=== PATIENT | female | born 1975 | race Caucasian/White ===

== ENCOUNTER → 2016-11-17 | Outpatient (CLI) | payer BC ==
[~2016-11-17] MED LIST: ALBUAER2 INH; CLC100 PO; CLRD24 PO; FLNIN NAE; IBUP-1428 PO; OXYC-57 PO; SYN150 PO
--- NOTE | 2016-11-17 15:04 | DIAGNOSTIC IMAGING REPORT ---
CERVICAL SPINE 4 OR 5 VIEWS CLINICAL HISTORY: NECK PAIN left arm radiculopathy. COMPARISON STUDY: No previous studies for comparison. FINDINGS: The prevertebral soft tissues are normal. No fractures or subluxations are visualized. The bony neural foramen appear patent. There are no erosive or destructive changes. IMPRESSION: No significant conventional radiographic abnormalities. Electronically signed by: Pelon Cabrera M.D. 11/17/2016 3:02 PM Dictated Date/Time: 11/17/2016 3:02 PM
== END | disposition home or self-care (01) ==
LOC: C.RDSM 14:55
PROVIDERS: ATTEND Internal Medicine
DX: M54.2 Cervicalgia (principal)

== ENCOUNTER 2020-10-13 19:34 | Observation (INO) ==
[2020-10-13] MEDS ORDERED: ONDANSETRON INJ 2 MG/ML 2 ML VIAL IV STA ×2 (19:54→22:11)
[2020-10-13] MEDS ORDERED: SODIUM CHLORIDE 0.9% 1000ML 1,000 ML IV STA (19:54)
--- NOTE | 2020-10-13 20:15 | Emergency Department Note ---
History of Present Illness General Chief complaint: Abdominal Pain Stated complaint: ABD PAIN Time Seen by Provider: 10/13/20 19:39 Source: patient and family (Spouse who is at the bedside and driving) Mode of arrival: ambulatory Limitations: no limitations History of Present Illness Maximum Pain Intensity: 8 This patient comes in complaining of abdominal pain. She said she was fine today until around 4:00 she developed nausea she threw up at 6:00 and said that it did look blackish like coffee grounds. She has stomachache afterwards. She had 2 episodes of diarrhea since that had no blood or melena. She feels bloated in the central abdominal discomfort that comes and goes slightly to the left. She has had 2 doses a Covid vaccine several weeks ago. No sick contacts. no unusual food. no fever or chills. no cough or shortness of breath. No travel. No history of similar. She does not use aspirin or NSAIDs and has no history of stomach problems. She has had a hysterectomy and a but no other abdominal surgeries Home Medications Medication Instructions Recorded Confirmed Type albuterol sulfate 2 puff INHALATION Q4 PRN 10/13/20 10/13/20 History fluticasone propionate 2 spray INTRANASAL DAILY PRN 10/13/20 10/13/20 History fluticasone propionate [Flovent 2 puff INHALATION BID PRN 10/13/20 10/13/20 History HFA] ibuprofen 400 mg PO Q6H PRN 10/13/20 10/13/20 History levothyroxine 100 mcg PO DAILY 10/13/20 10/13/20 History Allergies Allergy/AdvReac Type Severity Reaction Status Date / Time No Known Allergies Allergy Unknown Verified 10/13/20 20:07 Past Med/Surg History Social History Smoking Status: Never smoker Preferred Language: Indonesian Feels Safe at Home: Yes Immunizations: Past medical historyasthma which has been stable. hysterectomy. Denies diabetes or cardiac disease. She takes thyroid replacement for hypothyroidism and that is her only medication Allergiesno known drug allergies Social history she does not smoke. Drinks very rarely. Denies drug use Review of Systems A total of 10 systems reviewed and were otherwise negative Physical Exam Vital Signs Vital Signs - 24 hr 10/13/20 19:36 10/13/20 20:37 10/13/20 21:30 Temperature 36.7 C Temperature Source Temporal Artery Scan Pulse Rate 99 H Pulse Rate [Finger] 91 H 97 H Pulse Rhythm [Finger] Pulse Strength [Finger] Respiratory Rate 20 18 18 Respiratory Effort / Characteristics Non-Labored Spontaneous Non-Labored Spontaneous Respiratory Depth Normal Normal Respiratory Pattern Regular Regular Blood Pressure 157/86 H Blood Pressure [Right Arm] 122/75 130/83 Blood Pressure Mean 109 Blood Pressure Mean [Right Arm] 90 98 Blood Pressure Position [Right Arm] Pulse Oximetry 99 98 98 Oxygen Delivery Method Room Air Room Air Sepsis New/Unexplained Change in Mental Status N/A Sepsis Action Taken by Nursing No Action Required 10/13/20 22:21 Temperature Temperature Source Pulse Rate Pulse Rate [Finger] 93 H Pulse Rhythm [Finger] Regular Pulse Strength [Finger] Normal Respiratory Rate 18 Respiratory Effort / Characteristics Non-Labored Spontaneous Respiratory Depth Normal Respiratory Pattern Regular Blood Pressure Blood Pressure [Right Arm] 111/79 Blood Pressure Mean Blood Pressure Mean [Right Arm] 89 Blood Pressure Position [Right Arm] Lying Pulse Oximetry 97 Oxygen Delivery Method Room Air Sepsis New/Unexplained Change in Mental Status Sepsis Action Taken by Nursing General: Well developed well nourished middle-age female who appears in no acute distress, breathing comfortably on room air. Normal speech HEENT: Normal cephalic atraumatic. Pupils are equal round and reactive to light. Extraocular movements are intact. Oropharynx is pink with moist mucous membranes. No swelling of the mouth lips or tongue. Neck: Supple with a midline trachea. No meningeal signs or stiffness, no JVD or bruits. No Stridor. Chest: Clear to auscultation bilaterally. No wheezes or rhonchi. No increased work of breathing. Heart: Regular rate and rhythm without murmurs or gallops. Abdomen: Soft minimally tender in the epigastric area and centrally nondistended without rebound guarding or rigidity. Extremities: No cyanosis clubbing or edema. No calf tenderness or assymetry Spine/Back. Non tender to palpation. No CVA tenderness Skin: Good turgor without rashes. Neurologic exam: Cranial nerves two through 12 are intact. Motor and sensation are intact and symmetrical throughout. Course Administered Medications Discontinued Medications Sodium Chloride (Nss 1000ml) 1,000 mls @ 999 mls/hr IV .Q1H1M STA Stop: 10/13/20 20:54 Last Infusion: 10/13/20 21:10 Dose: 0 mls/hr Documented by: [id number] Admin: 10/13/20 20:09 Dose: 999 mls/hr Documented by: [id number] Sodium Chloride (Nss 1000ml) 1,000 mls @ 999 mls/hr IV .Q1H1M ONE Stop: 10/13/20 22:14 Last Infusion: 10/13/20 22:31 Dose: 0 mls/hr Documented by: [id number] Admin: 10/13/20 21:30 Dose: 999 mls/hr Documented by: [id number] Promethazine HCl (Phenergan) 12.5 mg in 50.5 mls @ 202 mls/hr IV NOW STA Stop: 10/13/20 22:58 Last Infusion: 10/13/20 23:04 Dose: 0 mls/hr Documented by: [id number] Admin: 10/13/20 22:49 Dose: 202 mls/hr Documented by: [id number] Pantoprazole Sodium 40 mg/ (Syringe) 10 mls @ 5 mls/min IV NOW STA Stop: 10/13/20 23:00 Last Admin: 10/13/20 23:31 Dose: 5 mls/min Documented by: [id number] Ioversol (Ioversol 100ml) 94 ml IV ONCE ONE Stop: 10/13/20 21:25 Last Admin: 10/13/20 21:24 Dose: 94 ml Documented by: [id number] Ondansetron HCl (Ondansetron Inj 2 Mg/Ml 2 Ml Vial) 4 mg IV NOW STA Stop: 10/13/20 19:55 Last Admin: 10/13/20 20:09 Dose: 4 mg Documented by: [id number] Ondansetron HCl (Ondansetron Inj 2 Mg/Ml 2 Ml Vial) 4 mg IV NOW STA Stop: 10/13/20 22:12 Last Admin: 10/13/20 22:15 Dose: 4 mg Documented by: [id number] Medical Decision Making Differential Diagnosis Gastritis, dehydration, infection, GI bleed, electrolyte or metabolic abnormality, pancreatitis, gallbladder or liver disease, Covid Medical Records Attestation: I reviewed the patient's medical records. Home Medications Current Medication List: was personally reviewed by me Laboratory Data Attestation: I reviewed the patient's lab results. Result diagrams: 10/13/20 20:11 10/13/20 20:11 Lab Results 10/13/20 10/13/20 10/13/20 Range/Units 20:11 20:11 21:13 WBC 21.97 H (4.8-10.8) K/uL RBC 4.57 (4.2-5.4) M/uL Hgb 13.9 (12.0-16.0) g/dL Hct 40.8 (37-47) % MCV 89.3 (80-100) fL MCH 30.4 (25-34) pg MCHC 34.1 (32-36) g/dL RDW Std Deviation 45.3 (36.4-46.3) fL RDW Coeff of Dudley 13.7 (11.5-14.5) % Plt Count 408 H (130-400) K/uL MPV 9.7 (7.4-10.4) fL Immature Gran % (Auto) 0.3 % Neut % (Auto) 86.1 % Lymph % (Auto) 8.3 % [place] % (Auto) 3.1 % Eos % (Auto) 2.0 % Baso % (Auto) 0.2 % Neut # (Auto) 18.90 H (1.4-6.5) K/uL Lymph # (Auto) 1.83 (1.2-3.4) K/uL [place] # (Auto) 0.69 H (0.11-0.59) K/uL Eos # (Auto) 0.45 (0-0.5) K/uL Baso # (Auto) 0.04 (0-0.2) K/uL Immature Gran # (Auto) 0.06 H (0.00-0.02) K/uL Sodium 138 (136-145) mmol/L Potassium 3.6 (3.5-5.1) mmol/L Chloride 106 (98-107) mmol/L Carbon Dioxide 25 (21-32) mmol/L Anion Gap 7.0 (3-11) BUN 15 (7-18) mg/dl Creatinine 1.17 (0.6-1.2) mg/dl Est Cr Clr Drug Dosing 66.9 ml/min Est GFR ( Amer) 64.3 Est GFR (Non-Af Amer) 55.4 BUN/Creatinine Ratio 12.6 (10-20) Glucose 97 (70-99) mg/dl Lactate 0.8 (0.4-2.0) mmol/L Calcium 8.9 (8.5-10.1) mg/dl Magnesium 2.1 (1.8-2.4) mg/dl Total Bilirubin 0.7 (0.2-1) mg/dl AST 11 L (15-37) U/L ALT 14 (12-78) U/L Alkaline Phosphatase 76 (45-117) U/L Total Protein 8.0 (6.4-8.2) gm/dl Albumin 4.5 (3.4-5.0) gm/dl Globulin 3.5 (2.5-4.0) gm/dl Albumin/Globulin Ratio 1.3 (0.9-2) Lipase 161 (73-393) U/L TSH 4.780 H (0.300-4.500) uIu/ml COVID-19 Eval Order 10/13/20 Range/Units 23:35 WBC (4.8-10.8) K/uL RBC (4.2-5.4) M/uL Hgb (12.0-16.0) g/dL Hct (37-47) % MCV (80-100) fL MCH (25-34) pg MCHC (32-36) g/dL RDW Std Deviation (36.4-46.3) fL RDW Coeff of Dudley (11.5-14.5) % Plt Count (130-400) K/uL MPV (7.4-10.4) fL Immature Gran % (Auto) % Neut % (Auto) % Lymph % (Auto) % [place] % (Auto) % Eos % (Auto) % Baso % (Auto) % Neut # (Auto) (1.4-6.5) K/uL Lymph # (Auto) (1.2-3.4) K/uL [place] # (Auto) (0.11-0.59) K/uL Eos # (Auto) (0-0.5) K/uL Baso # (Auto) (0-0.2) K/uL Immature Gran # (Auto) (0.00-0.02) K/uL Sodium (136-145) mmol/L Potassium (3.5-5.1) mmol/L Chloride (98-107) mmol/L Carbon Dioxide (21-32) mmol/L Anion Gap (3-11) BUN (7-18) mg/dl Creatinine (0.6-1.2) mg/dl Est Cr Clr Drug Dosing ml/min Est GFR ( Amer) Est GFR (Non-Af Amer) BUN/Creatinine Ratio (10-20) Glucose (70-99) mg/dl Lactate (0.4-2.0) mmol/L Calcium (8.5-10.1) mg/dl Magnesium (1.8-2.4) mg/dl Total Bilirubin (0.2-1) mg/dl AST (15-37) U/L ALT (12-78) U/L Alkaline Phosphatase (45-117) U/L Total Protein (6.4-8.2) gm/dl Albumin (3.4-5.0) gm/dl Globulin (2.5-4.0) gm/dl Albumin/Globulin Ratio (0.9-2) Lipase (73-393) U/L TSH (0.300-4.500) uIu/ml COVID-19 Eval Order CovFluRsv at [facility] Imaging Data Attestation: I personally reviewed and interpreted this imaging study as follows: Radiologist's Impression: Stat read abdominal and pelvis CT with IV contrast- suggestion of minimal wall thickening of the distal esophagus posteriorly which could be inflammatory, infectious or less likely neoplastic. Pancreas, kidneys, liver, gallbladder and spleen are unremarkable. No evidence of small bowel obstruction, free fluid, or free air in the abdomen or pelvis. Unremarkable appendix. Stool is visualized throughout the colon with predominantly fluid in the cecum with air-fluid levels which may indicate developing diarrheal illness. Moderate intervertebral disc space narrowing at L5-S1 ECG Data Attestation: I personally reviewed and interpreted this ECG as follows: Indication: + abdominal pain, + nausea and + vomiting Rate (beats per minute): 96 Rhythm: + normal sinus ECG Intervals/blocks: + Normal QRS, + Normal QT and + Normal HI ECG [place]: + Normal ECG ST segments: + Normal ST segments ECG Findings: no PACs and no PVCs Comparison ECG Date: no prior available MDM Narrative This patient comes in as described above. She was placed in room she has had vomiting and diarrhea. The vomit did look blackish but she said no blood or melena stool. IV asked established and she was hydrated with iV normal saline and was given Zofran 4 mg IV. Multiple blood testing was obtained. She was reassessed frequently. She looks well and her abdomen is benign however her white count came back at 21,000. I went and reassessed her and she is actually feeling better after receiving IV fluids and IV Zofran. I did order additional IV normal saline bolus and added a lactic acid which ended up being normal her electrolytes are normal. She has no renal dysfunction. She has nothing to suggest liver, gallbladder , or pancreas disease. Given her elevated white count, I did order a CT as well. She also had episodes of diarrhea and vomiting here and said the vomiting did not look black or dark anymore and I looked at the stool and it was not melanotic or black and I did guaiac it and it was guaiac negative. Lactic acid was not elevated which is also reassuring. CAT scan does not show any definite findings to explain her symptoms and she may have esophagitis but I do not think it likely explains all of her symptoms. I think she most likely does have a GI illness but she has required additional doses IV Zofran and IV Phenergan. I do think she should be admitted/observed for further medications and evaluation as her white count is elevated as well. I have consulted Dr. Ruiz to see her in the ER. Also I did get an EKG and there is nothing shows acute coronary syndrome or cardiac event. Continuous cardiac monitoring: Order was placed in EMR for continuous cardiac monitoring due to the patient's symptoms., Upon my interpretation, she was noted to be in normal sinus rhythm with a pulse of 90. Impression & Plan Abdominal pain, Nausea & vomiting, Diarrhea, Elevated WBC count Discharge Plan Visit Data Chief Complaint: Abdominal Pain Stated Complaint: ABD PAIN ED Provider: Marquez Escamilla Discharge Problem: Abdominal pain, Nausea & vomiting, Diarrhea, Elevated WBC count Forms Stand Alone Forms: My [facility] Prescriptions Prescriptions: No Action levothyroxine 100 mcg tablet 100 mcg PO DAILY RF: 0 ibuprofen 200 mg Tablet 400 mg PO Q6H PRN (Reason: Pain) RF: 0 Flovent HFA 220 mcg/actuation HFA aerosol inhaler 2 puff INHALATION BID PRN (Reason: Shortness Of Breath) RF: 0 albuterol sulfate 90 mcg/actuation HFA aerosol inhaler 2 puff INHALATION Q4 PRN (Reason: Shortness Of Breath Or Wheezing) RF: 0 fluticasone propionate 50 mcg/actuation spray,suspension 2 spray INTRANASAL DAILY PRN (Reason: Nasal Congestion) RF: 0 Discharge Problem: Abdominal pain Qualifiers: Abdominal location: periumbilical Qualified Code(s): R10.33 - Periumbilical pain Nausea & vomiting Qualifiers: Vomiting type: unspecified Vomiting Intractability: non-intractable Qualified Code(s): R11.2 - Nausea with vomiting, unspecified Diarrhea Qualifiers: Diarrhea type: unspecified type Qualified Code(s): R19.7 - Diarrhea, unspecified Elevated WBC count Qualifiers: Leukocytosis type: unspecified Qualified Code(s): D72.829 - Elevated white blood cell count, unspecified
[2020-10-13 20:23] LABS: Basophils # (auto) 0.04 K/uL (0-0.2); Basophils % (auto) 0.2 %; Eosinophils # (auto) 0.45 K/uL (0-0.5); Hematocrit (blood only) 40.8 % (37-47); Hemoglobin 13.9 g/dL (12.0-16.0); Immature Granulocytes # (auto) 0.06 K/uL (0.00-0.02); Immature Granulocytes % (auto) 0.3 %; Lymphocytes # (auto) 1.83 K/uL (1.2-3.4); Lymphocytes % (auto) 8.3 %; Mean Corpuscular Hemoglobin 30.4 pg (25-34); Mean Corpuscular Hgb Conc 34.1 g/dL (32-36); Mean Corpuscular Volume 89.3 fL (80-100); Mean Platelet Volume 9.7 fL (7.4-10.4); Monocytes # (auto) 0.69 K/uL (0.11-0.59); Monocytes % (auto) 3.1 %; Neutrophils % (auto) 86.1 %; Platelet Count 408 K/uL (130-400); RDW Coefficient of Variation 13.7 % (11.5-14.5); RDW Standard Deviation 45.3 fL (36.4-46.3); Red Blood Count 4.57 M/uL (4.2-5.4); White Blood Count 21.97 K/uL (4.8-10.8)
[2020-10-13 20:40] LABS: Albumin Level 4.5 gm/dl (3.4-5.0); BUN Creatinine Ratio 12.6 (10-20); Calcium 8.9 mg/dl (8.5-10.1); Creatinine Clr Calc Pharmacy 66.9 ml/min; Est GFR (African American) 64.3; Est GFR (Non-African American) 55.4; Potassium 3.6 mmol/L (3.5-5.1)
[2020-10-13 20:43] LABS: Albumin Globulin Ratio 1.3 (0.9-2); Bilirubin,Total 0.7 mg/dl (0.2-1); Globulin 3.5 gm/dl (2.5-4.0)
[2020-10-13] MEDS ORDERED: SODIUM CHLORIDE 0.9% 1000ML 1,000 ML IV ONE (21:14)
[2020-10-13] MEDS ORDERED: OPTIRAY 320 100ml IV ONE (21:24)
[2020-10-13] MEDS ORDERED: PROMETHAZINE 12.5 MG/50.5 ML BAG IV STA (22:44)
[2020-10-13] MEDS ORDERED: PANTOprazole 40 MG in SYRINGE 0 ML IV STA (22:59)
[2020-10-13] MEDS ORDERED: traMADol HCL 50 MG TABLET PO PRN (23:32)
[2020-10-13] MEDS ORDERED: PROMETHAZINE HCL 12.5 MG in SODIUM CHLORIDE 0.9% 50 ML IV PRN (23:32)
[2020-10-13] MEDS ORDERED: MoRPHine SULFATE 2 MG/ML CARP IV PRN (23:33)
[2020-10-13] MEDS ORDERED: LORazepam 0.5 MG/1 ML VIAL IV PRN (23:33)
[2020-10-13] MEDS ORDERED: POTASSIUM CHLORIDE 40 MEQ in SODIUM CHLORIDE 0.9% 1000ML 1,000 ML IV ONE (23:34)
[2020-10-13 23:42] LABS: Magnesium 2.1 mg/dl (1.8-2.4); Thyroid Stimulating Hormone 4.78 uIu/ml (0.300-4.500)
--- NOTE | 2020-10-14 00:12 | History & Physical Report ---
Date of Service October 14, 2020 Assessment & Plan (1) Abdominal pain: Secondary to viral gastroenteritis Rule out C. difficile UGI B secondary to emesis episodes Esophagitis on CT Currently hemodynamically stable hypothyroidism, TSH elevated bronchial asthma, stable OBS GMF Supportive management for viral gastroenteritis Stool C. difficile IV PPI N.p.o. for now, advance diet to clears if without recurrent GI bleed GI consult if with recurrent UGI B, significant hemoglobin drop DVT prophylaxis. SCDs RE UGI bleed Full code Text document was generated using Reviews[employer] voice recognition software. It may contain grammatical or spelling errors. Kindly contact undersigned for clarification of any documentation item in question. History of Present Illness Chief Complaint: Abdominal pain, coffee-ground emesis Primary Care Provider: Edison eRndon DO History obtained from patient, family, and records. Medical history significant for hypothyroidism, bronchial asthma. Yesterday afternoon, patient had sudden onset of central abdominal pain followed by coffee-ground emesis in watery diarrhea. Denies black/bloody stools. No fever, no chills. Patient denies chest pain, S OB. No known sick contacts. No recent out-of-town travel/unusual food. No recent antibiotic Rx. No inordinate OTC NSAID intake. Patient brought by to the ER. Medical History as above 2014 colonoscopy showed polyps and internal hemorrhoids Surgical History : section, exploration of Pfannenstiel incision, tonsillectomy, KELLY Family History : Breast cancer, renal cancer, lymphoma, precancerous colonic polyps, sarcoidosis, stroke Personal/Social history : Non-smoker, occasional EtOH intake, [employer] employee Allergies Allergy/AdvReac Type Severity Reaction Status Date / Time No Known Allergies Allergy Unknown Verified 10/13/20 20:07 Home Medications Medication Instructions Recorded Confirmed Type albuterol sulfate 2 puff INHALATION Q4 PRN 10/13/20 10/13/20 History fluticasone propionate 2 spray INTRANASAL DAILY PRN 10/13/20 10/13/20 History fluticasone propionate [Flovent 2 puff INHALATION BID PRN 10/13/20 10/13/20 History HFA] ibuprofen 400 mg PO Q6H PRN 10/13/20 10/13/20 History levothyroxine 100 mcg PO DAILY 10/13/20 10/13/20 History Past Med/Surg History Social History Smoking Status: Never smoker Hx Alcohol Use: No Hx Substance Use: No Preferred Language: Palestinian Communication Ability: Effective Business Architect Required: No Beliefs That Will Affect Care: None Current Living Situation: Spouse Other Information That Helps Us Care for You: No Feels Safe at Home: Yes Safety Concerns: Feels Safe At This Time Assistive Devices: Denture - Upper and Denture - Lower Review of Systems Review of Systems: As per HPI, all 10 systems reviewed, all other ROS negative Physical Exam Physical Exam: GENERAL: Slightly uncomfortable and anxious, obese, pleasant, no respiratory distress SKIN: Normal color, warm HEENT: [place] palpebral conjunctivae, no ptosis, dry buccal mucosa NECK : Supple, short neck, no tenderness CHEST : CTA, no tenderness HEART : RRR, no obvious murmurs ABDOMEN: Some distention, no overt tenderness EXTREMITIES : Minimal LE swelling, no LE tenderness, no other conspicuous deformities noted NEUROLOGIC : Coherent, no facial asymmetry, no other gross focality Results & Data Results & Data ([facility]) Vital Signs (Past 12 Hours) Vital Signs Temp Pulse Pulse Resp BP BP Pulse Ox 10/13/20 22:21 93 H 18 111/79 97 10/13/20 21:30 97 H 18 130/83 98 10/13/20 20:37 91 H 18 122/75 98 10/13/20 19:36 36.7 C 99 H 20 157/86 H 99 Laboratory Results Laboratory Results WBC 21.97 K/uL (4.8-10.8) H 10/13/20 20:11 RBC 4.57 M/uL (4.2-5.4) 10/13/20 20:11 Hgb 13.9 g/dL (12.0-16.0) 10/13/20 20:11 Hct 40.8 % (37-47) 10/13/20 20:11 MCV 89.3 fL (80-100) 10/13/20 20:11 MCH 30.4 pg (25-34) 10/13/20 20:11 MCHC 34.1 g/dL (32-36) 10/13/20 20:11 RDW Std Deviation 45.3 fL (36.4-46.3) 10/13/20 20:11 RDW Coeff of Dudley 13.7 % (11.5-14.5) 10/13/20 20:11 Plt Count 408 K/uL (130-400) H 10/13/20 20:11 MPV 9.7 fL (7.4-10.4) 10/13/20 20:11 Immature Gran % (Auto) 0.3 % 10/13/20 20:11 Neut % (Auto) 86.1 % 10/13/20 20:11 Lymph % (Auto) 8.3 % 10/13/20 20:11 [place] % (Auto) 3.1 % 10/13/20 20:11 Eos % (Auto) 2.0 % 10/13/20 20:11 Baso % (Auto) 0.2 % 10/13/20 20:11 Neut # (Auto) 18.90 K/uL (1.4-6.5) H 10/13/20 20:11 Lymph # (Auto) 1.83 K/uL (1.2-3.4) 10/13/20 20:11 [place] # (Auto) 0.69 K/uL (0.11-0.59) H 10/13/20 20:11 Eos # (Auto) 0.45 K/uL (0-0.5) 10/13/20 20:11 Baso # (Auto) 0.04 K/uL (0-0.2) 10/13/20 20:11 Immature Gran # (Auto) 0.06 K/uL (0.00-0.02) H 10/13/20 20:11 Sodium 138 mmol/L (136-145) 10/13/20 20:11 Potassium 3.6 mmol/L (3.5-5.1) 10/13/20 20:11 Chloride 106 mmol/L (98-107) 10/13/20 20:11 Carbon Dioxide 25 mmol/L (21-32) 10/13/20 20:11 Anion Gap 7.0 (3-11) 10/13/20 20:11 BUN 15 mg/dl (7-18) 10/13/20 20:11 Creatinine 1.17 mg/dl (0.6-1.2) 10/13/20 20:11 Est Cr Clr Drug Dosing 66.9 ml/min 10/13/20 20:11 Est GFR ( Amer) 64.3 10/13/20 20:11 Est GFR (Non-Af Amer) 55.4 10/13/20 20:11 BUN/Creatinine Ratio 12.6 (10-20) 10/13/20 20:11 Glucose 97 mg/dl (70-99) 10/13/20 20:11 Lactate 0.8 mmol/L (0.4-2.0) 10/13/20 21:13 Calcium 8.9 mg/dl (8.5-10.1) 10/13/20 20:11 Magnesium 2.1 mg/dl (1.8-2.4) 10/13/20 20:11 Total Bilirubin 0.7 mg/dl (0.2-1) 10/13/20 20:11 AST 11 U/L (15-37) L 10/13/20 20:11 ALT 14 U/L (12-78) 10/13/20 20:11 Alkaline Phosphatase 76 U/L (45-117) 10/13/20 20:11 Total Protein 8.0 gm/dl (6.4-8.2) 10/13/20 20:11 Albumin 4.5 gm/dl (3.4-5.0) 10/13/20 20:11 Globulin 3.5 gm/dl (2.5-4.0) 10/13/20 20:11 Albumin/Globulin Ratio 1.3 (0.9-2) 10/13/20 20:11 Lipase 161 U/L (73-393) 10/13/20 20:11 TSH 4.780 uIu/ml (0.300-4.500) H 10/13/20 20:11 COVID-19 Eval Order CovFluRsv at [facility] 10/13/20 23:[address] abdomen pelvis initial read: Minimal wall thickening of distal esophagus posteriorly could be inflammatory, infectious or less likely neoplastic. No evidence of small bowel obstruction, free fluid or free air in the abdomen pelvis. Unremarkable appendix. Developing diarrheal illness given visualization of stool throughout the colon with predominant fluid within the cecum with air-fluid levels. EKG as per my interpretation : Rate 95, NSR, normal axis, T wave abnormalities inferior leads (1) Abdominal pain Abdominal location: periumbilical Qualified Code(s): R10.33 - Periumbilical pain
[2020-10-14 00:22] LABS: Influenza A virus by PCR Negative (Neg); Influenza B virus by PCR Negative (Neg); RSV by PCR Negative (Neg); SARS CoV2 RNA(COVID-19) InHosp NEGATIVE (Negative)
[2020-10-14] MEDS: LEVOTHYROXINE SODIUM 100 MCG TABLET PO SCH (05:36)
[2020-10-14 06:23] LABS: Basophils # (auto) 0.04 K/uL (0-0.2); Basophils % (auto) 0.3 %; Eosinophils # (auto) 0.05 K/uL (0-0.5); Eosinophils % (auto) 0.4 %; Hematocrit (blood only) 36.9 % (37-47); Hemoglobin 12.1 g/dL (12.0-16.0); Immature Granulocytes # (auto) 0.02 K/uL (0.00-0.02); Immature Granulocytes % (auto) 0.2 %; Lymphocytes # (auto) 0.52 K/uL (1.2-3.4); Lymphocytes % (auto) 4.5 %; Mean Corpuscular Hemoglobin 29.2 pg (25-34); Mean Corpuscular Hgb Conc 32.8 g/dL (32-36); Mean Corpuscular Volume 89.1 fL (80-100); Mean Platelet Volume 9.5 fL (7.4-10.4); Monocytes # (auto) 0.23 K/uL (0.11-0.59); Neutrophils # (auto) 10.67 K/uL (1.4-6.5); Neutrophils % (auto) 92.6 %; Platelet Count 306 K/uL (130-400); RDW Coefficient of Variation 13.8 % (11.5-14.5); RDW Standard Deviation 45.5 fL (36.4-46.3); Red Blood Count 4.14 M/uL (4.2-5.4); White Blood Count 11.53 K/uL (4.8-10.8)
[2020-10-14 06:55] LABS: BUN Creatinine Ratio 13.3 (10-20); Calcium 7.9 mg/dl (8.5-10.1); Creatinine Clr Calc Pharmacy 83.3 ml/min; Est GFR (African American) 83.7; Est GFR (Non-African American) 72.2; Potassium 4.2 mmol/L (3.5-5.1)
[2020-10-14] MEDS: PANTOprazole 40 MG in SYRINGE 0 ML IV SCH ×2 (08:29→21:25)
--- NOTE | 2020-10-14 08:37 | CT Scan Report ---
CT OF THE ABDOMEN AND PELVIS WITH CONTRAST CLINICAL HISTORY: Abdominal pain. Leukocytosis. COMPARISON STUDY: None. TECHNIQUE: Following IV administration of 94 mL of Optiray-320, axial images of the abdomen and pelvi s were obtained from the lung bases to the proximal femurs. Images were reviewed in the axial, sagitt al, and coronal planes. IV contrast was administered without complication. Automated exposure contro l was utilized for the study. A dose lowering technique was utilized adhering to the principles of A AKOSUA. CT DOSE: 884.70 mGy.cm FINDINGS: Lung bases are unremarkable. There is a small hiatal hernia. There is equivocal pneumatosis involving the ascending colon and hepatic flexure of the colon. No mesenteric venous gas is noted. T here is no adjacent infiltration. The liver, spleen, adrenal glands, kidneys and pancreas are unremar kable with the exception of a subcentimeter right renal lesion which is too small to characterize but is likely benign. There is no biliary or pancreatic ductal dilatation. There is no peripancreatic or pericholecystic infiltration. There is no hydronephrosis. The caliber and wall thickness of small an d large bowel are normal. The appendix is normal. Major vasculature is patent. There is no lymphadeno benjamín or ascites. No acute fracture or suspicious lesion is identified within the visualized skeletal structures. IMPRESSION: Equivocal pneumatosis of the ascending colon and hepatic flexure of the colon. Pseudopne umatosis is favored. However, if persistent pain, a short-term follow-up contrast-enhanced CT of the abdomen and pelvis is recommended as pneumatosis cannot be excluded. No adjacent infiltration. No mes enteric venous gas. Discussed with Dr. Pineda at time of dictation. ACT 112: Negative or not required by law. Electronically signed by: Issac Hemphill M.D. 10/14/2020 8:36 AM
--- NOTE | 2020-10-14 12:27 | Electrocardiogram Report ---
Test Reason : Blood Pressure : / mmHG Vent. Rate : 096 BPM Atrial Rate : 096 BPM P-R Int : 138 ms QRS Dur : 090 ms QT Int : 364 ms P-R-T Axes : 053 019 004 degrees QTc Int : 459 ms Normal sinus rhythm Normal ECG No previous ECGs available Confirmed by Wilbert Price ([id number]) on 10/14/2020 12:27:02 PM Referred By: REFERRED SELF Confirmed By:Wilbert Price
[2020-10-14 12:35] LABS: Hematocrit (blood only) 37.4 % (37-47); Hemoglobin 12.3 g/dL (12.0-16.0)
[2020-10-14] MEDS ORDERED: POTASSIUM CHLORIDE 40 MEQ in SODIUM CHLORIDE 0.9% 1000ML 1,000 ML IV SCH (13:00)
[2020-10-14 18:05] LABS: Hematocrit (blood only) 34.8 % (37-47); Hemoglobin 11.2 g/dL (12.0-16.0)
[2020-10-15] MEDS: LEVOTHYROXINE SODIUM 100 MCG TABLET PO SCH (05:54)
[2020-10-15 07:52] LABS: Basophils # (auto) 0.03 K/uL (0-0.2); Basophils % (auto) 0.5 %; Eosinophils # (auto) 0.34 K/uL (0-0.5); Hematocrit (blood only) 34.1 % (37-47); Hemoglobin 11.1 g/dL (12.0-16.0); Immature Granulocytes # (auto) 0.01 K/uL (0.00-0.02); Immature Granulocytes % (auto) 0.2 %; Lymphocytes # (auto) 1.49 K/uL (1.2-3.4); Lymphocytes % (auto) 26.5 %; Mean Corpuscular Hemoglobin 29.1 pg (25-34); Mean Corpuscular Hgb Conc 32.6 g/dL (32-36); Mean Corpuscular Volume 89.5 fL (80-100); Mean Platelet Volume 9.6 fL (7.4-10.4); Monocytes # (auto) 0.41 K/uL (0.11-0.59); Monocytes % (auto) 7.3 %; Neutrophils # (auto) 3.34 K/uL (1.4-6.5); Neutrophils % (auto) 59.5 %; Platelet Count 285 K/uL (130-400); RDW Coefficient of Variation 14.2 % (11.5-14.5); RDW Standard Deviation 46.6 fL (36.4-46.3); Red Blood Count 3.81 M/uL (4.2-5.4); White Blood Count 5.62 K/uL (4.8-10.8)
[2020-10-15] MEDS: PANTOprazole 40 MG in SYRINGE 0 ML IV SCH (07:57)
[2020-10-15 08:23] LABS: Albumin Level 3.2 gm/dl (3.4-5.0); BUN Creatinine Ratio 8.2 (10-20); Calcium 7.9 mg/dl (8.5-10.1); Creatinine Clr Calc Pharmacy 83.3 ml/min; Est GFR (African American) 83.7; Est GFR (Non-African American) 72.2; Potassium 3.5 mmol/L (3.5-5.1)
[2020-10-15 08:26] LABS: Albumin Globulin Ratio 1.1 (0.9-2); Bilirubin,Total 0.3 mg/dl (0.2-1); Total Protein 6.2 gm/dl (6.4-8.2)
--- NOTE | 2020-10-21 11:04 | Discharge Summary ---
Date of Service October 21, 2020 Admission HPI Per Admitting Provider History obtained from patient, family, and records. Medical history significant for hypothyroidism, bronchial asthma. Yesterday afternoon, patient had sudden onset of central abdominal pain followed by coffee-ground emesis in watery diarrhea. Denies black/bloody stools. No fever, no chills. Patient denies chest pain, S OB. No known sick contacts. No recent out-of-town travel/unusual food. No recent antibiotic Rx. No inordinate OTC NSAID intake. Patient brought by to the ER. Medical History as above 2014 colonoscopy showed polyps and internal hemorrhoids Surgical History : section, exploration of Pfannenstiel incision, tonsillectomy, KELLY Family History : Breast cancer, renal cancer, lymphoma, precancerous colonic dorothy yps, sarcoidosis, stroke Personal/Social history : Non-smoker, occasional EtOH intake, [employer] employee Admission Exam Per Admitting Provider GENERAL: Slightly uncomfortable and anxious, obese, pleasant, no respiratory distress SKIN: Normal color, warm HEENT: Colp palpebral conjunctivae, no ptosis, dry buccal mucosa NECK : Supple, short neck, no tenderness CHEST : CTA, no tenderness HEART : RRR, no obvious murmurs ABDOMEN: Some distention, no overt tenderness EXTREMITIES : Minimal LE swelling, no LE tenderness, no other conspicuous deformities noted NEUROLOGIC : Coherent, no facial asymmetry, no other gross focality Principal Diagnosis possibly viral gastroenteritis Discharge Exam General: A&Ox HENT: NCAT, MMM, EOMI Eyes: PERRLA Neck: Supple, normal range of motion CVS: normal rate and rhythm Resp: b/l good breath sounds Abdomen: Soft, minimal central tenderness Extremities: No c/c/e Neuro: face symmetric, no gross focal deficits appreciated Skin: warm and dry, no rashes/lesions/errythema MSK: normal ROM, no joint swelling/erythema Discharge Data Allergies Allergy/AdvReac Type Severity Reaction Status Date / Time No Known Allergies Allergy Unknown Verified 10/13/20 20:07 Consultations 10/13/20 22:45 ED Decision to Admit Stat Ordered Studies 10/13/20 21:07 CT abd pelvis IV con only Stat Hospital Course (1) Abdominal pain: Secondary to viral gastroenteritis Rule out C. difficile - negative Patient is 45-year-old female who was admitted with central abdominal pain and with concern for hematemesis. CT abdomen/pelvis was obtained which revaled Equivocal pneumatosis of the ascending colon and hepatic flexure of the colon. Pseudopneumatosis is favored. However, if persistent pain, a short-term follow- up contrast-enhanced CT of the abdomen and pelvis is recommended as pneumatosis cannot be excluded. No adjacent infiltration. No mesenteric venous gas. There was concern for possible pneumatosis. However patient improved significantly. Prior to discharge her abdominal pain improved significantly. Abdominal exam was benign. Hemoglobin remains stable. Patient was hemodynamically stable. She tolerated diet without any issues. Patient was discharged in stable condition. Her presentation was likely secondary to viral gastroenteritis. Total Time Total Time Spent Total Time Spent (In Minutes): 35 Discharge Plan Discharge Items Patient Disposition: Hospice - Home Reason For Visit: ABD PAIN Discharge Diagnosis: Gastroenteritis Activity: Resume your previous activity Non-emergency contact: Primary Care Provider Call non-emergency contact if: your symptoms worsen Follow-up/Referrals: Edison Rendon DO [Primary Care Provider] - (Date & Time 10/22/2020 2:00 PM Provider Edison Rendon DO Department [facility] ) Diet: Regular Addtl Attending Provider Instructions: Follow up with your primary care physician within one week. Please obtain CBC to monitor hemoglobin. Pending Studies at Discharge: Yes Stand-Alone Forms: [facility] Medications and DC Order Prescriptions: Continued levothyroxine 100 mcg tablet 100 mcg PO DAILY RF: 0 ibuprofen 200 mg Tablet 400 mg PO Q6H PRN (Reason: Pain) RF: 0 Flovent HFA 220 mcg/actuation HFA aerosol inhaler 2 puff INHALATION BID PRN (Reason: Shortness Of Breath) RF: 0 albuterol sulfate 90 mcg/actuation HFA aerosol inhaler 2 puff INHALATION Q4 PRN (Reason: Shortness Of Breath Or Wheezing) RF: 0 fluticasone propionate 50 mcg/actuation spray,suspension 2 spray INTRANASAL DAILY PRN (Reason: Nasal Congestion) RF: 0 Discharge Orders: Discharge Order (Routine); Ordered 10/15/20 Ordered By: Lesley Pineda Admission Data Admit Date/Time: 10/14/20 00:27 Attending Provider: Lesley Pineda Admit Provider: Oconer,Eran N. Primary Care Provider: Edison Rendon Other Providers: Eran Becker Other Interventions: Discharge Summary Assessment (RN) Last Done: 10/15/20 09:52
== END 2020-10-15 11:32 | disposition hospice, home (50) ==
LOC: ED 19:34 → 3W 19:34 → UNDODISOB 10-15 10:50